=== PATIENT | male | born 1965 | race Caucasian/White ===

== ENCOUNTER 2022-02-06 22:35 | Emergency (ER) | payer MEDICAID, OTHER ==
[2022-02-06] MEDS ORDERED: Zofran 4 MG/2 ML VIAL ONE (22:57)
[2022-02-06] MEDS ORDERED: MORPHINE SULFATE 4 MG INJ ONE ×2 (22:57→23:09)
[2022-02-06] MEDS: Zofran 4 MG/2 ML VIAL IV ONE (22:59)
[2022-02-06] MEDS: MORPHINE SULFATE 4 MG INJ IV ONE ×2 (22:59→23:10)
--- NOTE | 2022-02-06 23:02 | ERPHSYRPT ---
- History of Present Illness Time Seen by Provider: 02/06/22 22:40 Historian: patient Exam Limitations: no limitations Patient Subjective Stated Complaint: pt states he has been having lt flank pain last 3 nights. tonight pain started at approx 1999 and was much worse . Triage Nursing Assessment: pt alert and oriented, answers questions. pt poor historian at thist krystyna. pt very restless in bed, guarding lt abd. skin warm and dry. abd firm, tender to light palpation on lt abd. bowel sounds occasional, very hypo. Physician History: Patient is a 56-year-old male presents to our ED for evaluation of left flank pain. Flank pain has been going on for 3 days. Flank pain getting progressively worse. No trauma no fever. No history of kidney stones. Pain tends to radiate to the left lower quadrant. No obvious hematuria. Patient is in significant pain and therefore cannot provide much information to this HPI. Patient voices no other complaints or concerns at this time. Timing/Duration: day(s) (3 days) Activities at Onset: none Quality: aching Abdominal Pain Onset Location: flank Pain Radiation: other Severity of Pain-Max: moderate Severity of Pain-Current: mild Modifying Factors: Improves With: nothing Associated Symptoms: denies symptoms Previous symptoms: no prior history Allergies/Adverse Reactions: No Known Drug Allergies Allergy (Verified 02/06/22 22:55) Home Medications: No Reportable Medications [No Reported Medications] 02/06/22 [History] Hx Tetanus, Diphtheria Vaccination/Date Given: Yes (up to date) Hx Influenza Vaccination/Date Given: No Hx Pneumococcal Vaccination/Date Given: No Immunizations Up to Date: Yes Travel Risk - International Travel Have you traveled outside of the country in past 3 weeks: No - Coronavirus Screening Are you exhibiting any of the following symptoms?: No Close contact with a COVID-19 positive Pt in past 14-21 Days: No - Vaccine Status Have you recieved a Covid-19 vaccination: Yes 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: [employer] - Vaccination Dates Date of 2cond Vaccination (if applicable): nov 07 - Review of Systems Constitutional: No Symptoms, No Fever, No Chills Eyes: No Symptoms Ears, Nose, & Throat: No Symptoms Respiratory: No Symptoms, No Cough, No Dyspnea Cardiac: No Symptoms, No Chest Pain, No Edema, No Syncope Abdominal/Gastrointestinal: No Symptoms, No Abdominal Pain, No Nausea, No Vomiting, No Diarrhea Genitourinary Symptoms: No Symptoms, No Dysuria Musculoskeletal: No Symptoms, No Back Pain, No Neck Pain Skin: No Symptoms, No Rash Neurological: No Symptoms, No Dizziness, No Focal Weakness, No Sensory Changes Psychological: No Symptoms Endocrine: No Symptoms Hematologic/Lymphatic: No Symptoms Immunological/Allergic: No Symptoms All Other Systems: Reviewed and Negative - Past Medical History Pertinent Past Medical History: Yes Neurological History: Other ENT History: No Pertinent History Cardiac History: Arrhythmia, Hypertension, Myocardial Infarction ([place]), Other Respiratory History: COPD Endocrine Medical History: No Pertinent History Musculoskeletal History: Arthritis GI Medical History: No Pertinent History History: No Pertinent History Psycho-Social History: Anxiety Male Reproductive Disorders: No Pertinent History Other Medical History: brain aneurysms, pt states "pulmonary valve problem" - Past Surgical History Past Surgical History: Yes Neuro Surgical History: No Pertinent History Cardiac: No Pertinent History Respiratory: No Pertinent History Gastrointestinal: No Pertinent History Genitourinary: No Pertinent History Musculoskeletal: Orthopedic Surgery Male Surgical History: Other Other Surgical History: right shoulder x2, left foot, pt states he broke his penis and had surgery to repair - Social History Smoking Status: Current every day smoker How long have you smoked: 30yrs Exposure to second hand smoke: No Drug Use: none Patient Lives Alone: No - Nursing Vital Signs Nursing Vital Signs: Initial Vital Signs Temperature 98.0 F 02/06/22 22:36 Pulse Rate 117 H 02/06/22 22:36 Respiratory Rate 20 02/06/22 22:36 Blood Pressure 175/124 02/06/22 22:36 Pain Scale Pain Intensity 4 - Physical Exam General Appearance: no apparent distress, alert Eye Exam: PERRL/EOMI, eyes nml inspection Ears, Nose, Throat Exam: normal ENT inspection, pharynx normal, moist mucous membranes Neck Exam: normal inspection, non-tender, supple, full range of motion Respiratory Exam: normal breath sounds, lungs clear, airway intact, No chest tenderness, No respiratory distress Cardiovascular Exam: regular rate/rhythm, normal heart sounds, normal peripheral pulses Gastrointestinal/Abdomen Exam: soft, other (Tenderness patient left flank. Left CVA tenderness.), No tenderness, No mass Back Exam: normal inspection, normal range of motion, No CVA tenderness, No vertebral tenderness Extremity Exam: normal inspection, normal range of motion, pelvis stable Neurologic Exam: alert, oriented x 3, cooperative, normal mood/affect, nml cerebellar function, sensation nml, No motor deficits Skin Exam: normal color, warm, dry Lymphatic Exam: adenopathy SpO2 Interpretation: normal SpO2: 98 O2 Delivery: Room Air - Course Nursing assessment & vital signs reviewed: Yes EKG Interpreted by Me: RATE ([id number]), Sinus Tach, NORMAL AXIS, NORMAL INTERVALS - CT Exams Abdomen/Pelvis CT Interpretation: Tele-radiologist Report (4.8 mm proximal left ureteral stone with mild left hydronephrosis. Moderate to severe degenerative spondylolisthesis at L4/L5 and L5/L1) Ordered Tests: Active Orders 24 hr Category Date Time Status EKG-ER Only STAT Care 02/06/22 22:52 Active IV Insertion STAT Care 02/06/22 22:52 Active ABDOMEN AND PELVIS W/0 CONTRAS [CT] Stat Exams 02/06/22 22:52 Taken CBC W DIFF Stat Lab 02/06/22 22:55 Completed CMP Stat Lab 02/06/22 22:55 Completed CULTURE,URINE Stat Lab 02/06/22 23:42 Received LIPASE Stat Lab 02/06/22 22:55 Completed TROPONIN Q3H Lab 02/06/22 22:55 Completed TROPONIN Q3H Lab 02/07/22 02:00 Ordered TROPONIN Q3H Lab 02/07/22 05:00 Ordered TROPONIN Q3H Lab 02/07/22 08:00 Ordered TROPONIN Q3H Lab 02/07/22 11:00 Ordered UA W/RFX CULTURE Stat Lab 02/06/22 23:42 Completed Medication Summary Discontinued Medications Generic Name Dose Route Start Last Admin Trade Name Freq PRN Reason Stop Dose Admin Hydromorphone HCl Confirm 02/06/22 23:24 Hydromorphone 1 Mg/1ml Inj 1 Mg/Ml Syringe Administered 02/06/22 23:25 Dose 1 mg .ROUTE .STK-MED ONE Hydromorphone HCl 0.5 mg 02/06/22 23:28 02/06/22 23:37 Hydromorphone 1 Mg/1ml Inj 1 Mg/Ml Syringe IV 02/06/22 23:29 0.5 mg STAT ONE Administration Ketorolac Tromethamine 30 mg 02/07/22 00:08 02/07/22 00:15 Ketorolac Tromethamine 30 Mg/Ml Inj IV 02/07/22 00:09 30 mg STAT ONE Administration Ketorolac Tromethamine Confirm 02/07/22 00:13 Ketorolac Tromethamine 30 Mg/Ml Inj Administered 02/07/22 00:14 Dose 30 mg .ROUTE .STK-MED ONE Morphine Sulfate 4 mg 02/06/22 22:53 02/06/22 22:59 Morphine Sulfate 4 Mg/Ml Injection IV 02/06/22 22:54 4 mg STAT ONE Administration Morphine Sulfate Confirm 02/06/22 22:57 Morphine Sulfate 4 Mg/Ml Injection Administered 02/06/22 22:58 Dose 4 mg .ROUTE .STK-MED ONE Morphine Sulfate 4 mg 02/06/22 23:08 02/06/22 23:10 Morphine Sulfate 4 Mg/Ml Injection IV 02/06/22 23:09 4 mg STAT ONE Administration Morphine Sulfate Confirm 02/06/22 23:09 Morphine Sulfate 4 Mg/Ml Injection Administered 02/06/22 23:10 Dose 4 mg .ROUTE .STK-MED ONE Ondansetron HCl 4 mg 02/06/22 22:54 02/06/22 22:59 Ondansetron Hcl 4 Mg/2 Ml Vial IV 02/06/22 22:55 4 mg STAT ONE Administration Ondansetron HCl Confirm 02/06/22 22:57 Ondansetron Hcl 4 Mg/2 Ml Vial Administered 02/06/22 22:58 Dose 4 mg .ROUTE .STK-MED ONE Lab/Rad Data: Laboratory Result Diagrams 02/06/22 22:55 02/06/22 22:55 Laboratory Results 02/06/22 02/06/22 02/06/22 Range/Units 23:42 22:55 22:55 WBC (4.0-10.5) x10^3/uL RBC (4.1-5.6) x10^6/uL Hgb (12.5-18.0) g/dL Hct (42-50) % MCV (78-100) fL MCH (26-32) pg MCHC (32-36) g/dL RDW (11.5-14.0) % Plt Count (150-450) x10^3/uL MPV (7.5-11.0) fL Gran % (36.0-66.0) % Immature Gran % (Auto) (0.00-0.4) % Nucleat RBC Rel Count (0.00-0.1) % Eos # (Auto) (0-0.5) x10^3/uL Immature Gran # (Auto) (0.00-0.03) x10^3u/L Absolute Lymphs (auto) (1.0-4.6) x10^3/uL Absolute Monos (auto) (0.0-1.3) x10^3/uL Absolute Nucleated RBC (0.00-0.01) x10^3u/L Lymphocytes % (24.0-44.0) % Monocytes % (0.0-12.0) % Eosinophils % (0.00-5.0) % Basophils % (0.0-0.4) % Absolute Granulocytes (1.4-6.9) x10^3/uL Basophils # (0-0.4) x10^3/uL Sodium 138 (137-145) mmol/L Potassium 3.6 (3.5-5.1) mmol/L Chloride 104 (98-107) mmol/L Carbon Dioxide 22 (22-30) mmol/L Anion Gap 15.6 H (5-15) MEQ/L BUN 18 (9-20) mg/dL Creatinine 1.24 (0.66-1.25) mg/dL Estimated GFR > 60.0 ML/MIN Glucose 107 H (74-106) mg/dL Calcium 9.6 (8.4-10.2) mg/dL Total Bilirubin 0.50 (0.2-1.3) mg/dL AST 21 (17-59) U/L ALT 16 (0-50) U/L Alkaline Phosphatase 113 (38-126) U/L Troponin I < 0.012 (0.000-0.034) ng/mL Serum Total Protein 7.2 (6.3-8.2) g/dL Albumin 4.3 (3.5-5.0) g/dL Lipase 617 H (23-300) U/L Urinalys Dipstick Clnc MAIN LAB Urine Color YELLOW (YELLOW) Urine Appearance CLEAR (CLEAR) Urine pH 5.5 (5-6) Ur Specific [place] >=1.030 (1.005-1.025) POC Urine Protein Conf TRACE (Negative) Urine Ketones NEGATIVE (NEGATIVE) Urine Nitrite NEGATIVE (NEGATIVE) Urine Bilirubin NEGATIVE (NEGATIVE) Urine Urobilinogen 0.2 (0-1) mg/dL Urine Leukocytes NEGATIVE (NEGATIVE) Urine WBC (Auto) 6-10 (0-5) /HPF Urine RBC (Auto) 3-5 (0-2) /HPF U Epithel Cells (Auto) NONE (FEW) /HPF Urine Bacteria (Auto) NONE (NEGATIVE) /HPF Urine RBC TRACE-INTACT (0-5) Demario/ul Urine Mucus (Auto) SLIGHT (NEGATIVE) /HPF Ur Culture Indicated? YES Urine Glucose NEGATIVE (NEGATIVE) mg/dL 02/06/22 Range/Units 22:55 WBC 11.6 H (4.0-10.5) x10^3/uL RBC 4.29 (4.1-5.6) x10^6/uL Hgb 13.9 (12.5-18.0) g/dL Hct 41.0 L (42-50) % MCV 95.6 (78-100) fL MCH 32.4 H (26-32) pg MCHC 33.9 (32-36) g/dL RDW 13.0 (11.5-14.0) % Plt Count 265 (150-450) x10^3/uL MPV 9.9 (7.5-11.0) fL Gran % 68.6 H (36.0-66.0) % Immature Gran % (Auto) 0.3 (0.00-0.4) % Nucleat RBC Rel Count 0.0 (0.00-0.1) % Eos # (Auto) 0.11 (0-0.5) x10^3/uL Immature Gran # (Auto) 0.03 (0.00-0.03) x10^3u/L Absolute Lymphs (auto) 2.77 (1.0-4.6) x10^3/uL Absolute Monos (auto) 0.68 (0.0-1.3) x10^3/uL Absolute Nucleated RBC 0.00 (0.00-0.01) x10^3u/L Lymphocytes % 24.0 (24.0-44.0) % Monocytes % 5.9 (0.0-12.0) % Eosinophils % 1.0 (0.00-5.0) % Basophils % 0.2 (0.0-0.4) % Absolute Granulocytes 7.94 H (1.4-6.9) x10^3/uL Basophils # 0.02 (0-0.4) x10^3/uL Sodium (137-145) mmol/L Potassium (3.5-5.1) mmol/L Chloride (98-107) mmol/L Carbon Dioxide (22-30) mmol/L Anion Gap (5-15) MEQ/L BUN (9-20) mg/dL Creatinine (0.66-1.25) mg/dL Estimated GFR ML/MIN Glucose (74-106) mg/dL Calcium (8.4-10.2) mg/dL Total Bilirubin (0.2-1.3) mg/dL AST (17-59) U/L ALT (0-50) U/L Alkaline Phosphatase (38-126) U/L Troponin I (0.000-0.034) ng/mL Serum Total Protein (6.3-8.2) g/dL Albumin (3.5-5.0) g/dL Lipase (23-300) U/L Urinalys Dipstick Clnc Urine Color (YELLOW) Urine Appearance (CLEAR) Urine pH (5-6) Ur Specific [place] (1.005-1.025) POC Urine Protein Conf (Negative) Urine Ketones (NEGATIVE) Urine Nitrite (NEGATIVE) Urine Bilirubin (NEGATIVE) Urine Urobilinogen (0-1) mg/dL Urine Leukocytes (NEGATIVE) Urine WBC (Auto) (0-5) /HPF Urine RBC (Auto) (0-2) /HPF U Epithel Cells (Auto) (FEW) /HPF Urine Bacteria (Auto) (NEGATIVE) /HPF Urine RBC (0-5) Demario/ul Urine Mucus (Auto) (NEGATIVE) /HPF Ur Culture Indicated? Urine Glucose (NEGATIVE) mg/dL - Progress Progress: improved Progress Note: Patient reassessed. Pain improved. Work-up reveals a proximal 4.8 mm left ure terolithiasis with hydronephrosis and hydroureter. Patient is still in significant pain. Kidney function within normal limits we will transfer patient to [facility] for further evaluation and treatment. Case discussed with Dr. Cartagena ER physician who accepts transfer. Plan of care discussed with patient. Patient agrees to transfer. He voices no other complaints or concerns at this time. Portions of this note were created with voice recognition technology. There may be grammatical, spelling, punctuation or sound alike errors 02/07/22 01:[address] Cross Counseled pt/family regarding: lab results, diagnosis, rad results - Departure Departure Disposition: Observation Clinical Impression: Ureterolithiasis, Hydronephrosis, Hydroureter, Spondylosis, Elevated lipase Condition: Stable Critical Care Time: No Referrals: DOCTOR,NO FAMILY [Primary Care Provider] - Follow up/PCP as directed
[2022-02-06] MEDS ORDERED: Hydromorphone 1 mg/ml Injection ONE (23:24)
[2022-02-06 23:25] LABS: Absolute Neutrophil Ct (ANC) 7.94 x10^3/uL (1.4-6.9); Basophil (Absolute #) 0.02 x10^3/uL (0-0.4); Eosinophil (Absolute #) 0.11 x10^3/uL (0-0.5); Hemoglobin 13.9 g/dL (12.5-18.0); Lymphocyte (Absolute #) 2.77 x10^3/uL (1.0-4.6); Mean Cell Volume 95.6 fL (78-100); Mean Corpuscular Hemoglobin 32.4 pg (26-32); Mean Corpuscular Hgb Concent. 33.9 g/dL (32-36); Mean Platelet Volume 9.9 fL (7.5-11.0); Monocyte (Absolute #) 0.68 x10^3/uL (0.0-1.3); Monocytes % 5.9 % (0.0-12.0); Neutrophil % 68.6 % (36.0-66.0); Platelet Count 265 x10^3/uL (150-450); Red Blood Count 4.29 x10^6/uL (4.1-5.6); White Blood Count 11.6 x10^3/uL (4.0-10.5)
[2022-02-06] MEDS: Hydromorphone 1 mg/ml Injection IV ONE (23:37)
[2022-02-06 23:41] LABS: ALBUMIN 4.3 g/dL (3.5-5.0); ALKALINE PHOSPHATASE 113 U/L (38-126); ANION GAP 15.6 MEQ/L (5-15); BLOOD UREA NITROGEN 18 mg/dL (9-20); CHLORIDE 104 mmol/L (98-107); Calcium 9.6 mg/dL (8.4-10.2); Carbon Dioxide 22 mmol/L (22-30); Creatinine 1 1.24 mg/dL (0.66-1.25); EST GLOMERULAR FILTRATION RATE > 60.0 ML/MIN; Glucose 107 mg/dL (74-106); LIPASE 617 U/L (23-300); Potassium 3.6 mmol/L (3.5-5.1); SGOT/AST 21 U/L (17-59); SGPT/ALT 16 U/L (0-50); SODIUM 138 mmol/L (137-145); Total Protein 7.2 g/dL (6.3-8.2)
[2022-02-06 23:45] VITALS: O2SAT 98
[2022-02-06 23:59] LABS: Appearance CLEAR (CLEAR)
[2022-02-07] LABS: Bilirubin NEGATIVE (NEGATIVE); Dipstick done @ ? MAIN LAB; Glucose NEGATIVE (NEGATIVE); Ketones NEGATIVE (NEGATIVE); Nitrite NEGATIVE (NEGATIVE); Ph 5.5 (5-6); Protein,Urine Dip TRACE (Negative); RBC TRACE-INTACT Ery/ul (0-5); Specific Gravity >=1.030 (1.005-1.025); Urobilinogen 0.2 mg/dL (0-1)
[2022-02-07 00:02] LABS: Mucus SLIGHT /HPF (NEGATIVE)
[2022-02-07 00:03] LABS: Urine Cultured Indicated? YES
[2022-02-07] MEDS ORDERED: TORAdol 30 mg Injection ONE (00:13)
[2022-02-07] MEDS: TORAdol 30 mg Injection IV ONE (00:15)
[2022-02-07 00:33] VITALS: BP 180/106; PULSE 100
--- NOTE | 2022-02-07 08:54 | XRAY ---
Indication: Left flank pain. Kidney stone versus dissection. Multiple contiguous axial images obtained through the abdomen and pelvis without contrast. Comparison: None Lung bases clear. Heart not enlarged. Noncontrasted stomach and bowel loops appear nonobstructed with normal appendix. Mild diffuse scattered colonic fecal debris throughout. 4-5 mm proximal left ureter calculus, approximately L3 level. Proximal left ureter is prominent along with mild hydronephrosis consistent with obstructive uropathy. No free fluid/air. Multiple small hepatic/splenic calcified granulomas. Remaining liver, gallbladder, pancreas, spleen, adrenal glands, kidneys, ureters, and bladder are unremarkable for noncontrast exam. Moderate scattered aortoiliac calcifications without AAA. Osseous structures intact with moderate L4-S1 degenerative disc disease. Impression: 1. 4-5 mm proximal left ureteral calculus producing obstructive uropathy as detailed. 2. Incidental mild diffuse fecal stasis, L4-S1 degenerative disc disease, arteriosclerotic disease, and old granulomatous disease. Comment: Preliminary interpretation made by [facility]. No critical discrepancy.
== END 2022-02-07 00:55 | disposition short-term general hospital (02) ==
LOC: ED 22:35
DX: N13.2 Hydronephrosis with renal and ureteral calculous obstruction (principal); N13.4 Hydroureter; M47.817 Spondylosis without myelopathy or radiculopathy, lumbosacral region; R94.8 Abnormal results of function studies of other organs and systems; R10.32 Left lower quadrant pain; I10 Essential (primary) hypertension; J44.9 Chronic obstructive pulmonary disease, unspecified; Z72.0 Tobacco use
CPT/HCPCS: 36000; 36415; 74176; 80053; 81015; 83690; 84484; 85025; 87086; 93005; 96374; 96375; 96376; 99284; J1170; J1885; J2270; J2405